=== PATIENT | male | born 1940 | race Caucasian/White ===

== ENCOUNTER 2017-03-17 13:59 | Emergency (ER) | payer MEDICARE, MEDICAID ==
[~2017-03-17] VITALS: Ht 154.9 cm; Wt 73.0 kg
[~2017-03-17 13:59] MED LIST: AMLO5TAB4 PO; ATEN50TA PO; FOLI-43 PO; HYDR25TA PO; LEVO25TA7 PO; LOSA50TA20 PO; LOSA50TA3 PO; TAMS0.4C31 PO; VALS320T2 PO
[2017-03-17 15:36] LABS: BASOPHILS % 1.2 % (0.0-2.0); EOSINOPHILS % 2.3 % (0.0-5.0); HEMATOCRIT. 31.9 % (42.0-52.0); HEMOGLOBIN. 10.5 g/dL (14.0-18.0); LYMPHOCYTES % 10.6 % (20.0-50.0); MEAN CORPUSCULAR HEMOGLOBIN 25.5 pg (28.0-32.0); MEAN CORPUSCULAR VOLUME 77.5 fL (80.0-94.0); MEAN PLATELET VOLUME 8.2 fl (7.4-10.4); MONOCYTES % 5.3 % (2.0-8.0); NEUTROPHILS % 80.6 % (40.0-76.0); PLATELET 249 x1000/uL (130-400); RED BLOOD CELL COUNT 4.12 mill/uL (4.7-6.1); RED CELL DISTRIBUTION WIDTH 17.6 % (11.6-14.6)
[2017-03-17 15:37] LABS: INR 1.1; PARTIAL THROMBOPLASTIN TIME 30.3 sec (24.0-34.0); PROTHROMBIN TIME 11.5 sec
[2017-03-17 15:38] LABS: CARBON DIOXIDE 25 mEq/L (21-32); CHLORIDE 104 mEq/L (98-107)
[2017-03-17 15:43] LABS: CREATINE KINASE 28 IU/L (39-308)
[2017-03-17 15:46] LABS: CREATINE KINASE MB FRACTION 0.6 ng/mL (0.5-3.6); TROPONIN I < 0.02 ng/mL (0.00-0.04)
[2017-03-17] MEDS ORDERED: PIPERACILLIN/TAZ 3.375G PREMIX 50 ML IV ONE (17:00)
[2017-03-17] MEDS ORDERED: FUROSEMIDE 20MG/2ML VIAL IVP ONE (17:00)
[2017-03-17] MEDS ORDERED: VANCOMYCIN 1 G PREMIX 200 ML IV SCH (17:00)
[2017-03-17 19:30] VITALS: BP 161/70
== END 2017-03-17 20:21 | disposition left against medical advice (07) ==
LOC: ER 15:33 → CANRESERV 21:42 → ENRESERV 21:42 → CANBEDREQ 22:13
DX: I50.40 Unspecified combined systolic (congestive) and diastolic (congestive) heart failure (principal); L03.115 Cellulitis of right lower limb; R94.6 Abnormal results of thyroid function studies; I11.0 Hypertensive heart disease with heart failure
CPT/HCPCS: 36415; 71010; 73630; 80053; 82550; 82553; 83690; 83880; 84443; 84484; 84550; 85025; 85610; 85730; 93005; 93970; 96365; 96367; 96375; 99285; J1940; J2543; J3370

== ENCOUNTER 2018-12-13 22:04 | Emergency (ER) | payer MEDICARE, MEDICAID ==
[~2018-12-13] VITALS: Ht 165.1 cm; Wt 73.0 kg
[2018-12-13 23:30] LABS: BASOPHILS % 0.8 % (0.0-2.0); EOSINOPHILS % 1.7 % (0.0-5.0); HEMATOCRIT. 32.9 % (42.0-52.0); HEMOGLOBIN. 10.6 g/dL (14.0-18.0); LYMPHOCYTES % 10.3 % (20.0-50.0); MEAN CORPUSCULAR HEMOGLOBIN 22.3 pg (28.0-32.0); MONOCYTES % 4.8 % (2.0-8.0); NEUTROPHILS % 82.4 % (40.0-76.0); PLATELET 342 x1000/uL (130-400); RED BLOOD CELL COUNT 4.77 mill/uL (4.7-6.1); RED CELL DISTRIBUTION WIDTH 19.5 % (11.6-14.6)
[2018-12-13 23:34] LABS: CHLORIDE 106 mEq/L (98-107)
[2018-12-14 00:06] LABS: PLATELET ESTIMATE NORMAL
[2018-12-14 01:00] VITALS: BP 171/70
== END 2018-12-14 01:00 | disposition home or self-care (01) ==
LOC: ER 22:04
DX: R60.0 Localized edema (principal); E78.00 Pure hypercholesterolemia, unspecified; H40.9 Unspecified glaucoma; I11.0 Hypertensive heart disease with heart failure; Z98.890 Other specified postprocedural states
CPT/HCPCS: 36415; 83880; 93005; 93970; 99284

== ENCOUNTER 2019-06-04 13:29 | Emergency (ER) | payer MEDICARE, MEDICAID ==
[~2019-06-04] VITALS: Ht 172.7 cm; Wt 74.0 kg
[~2019-06-04 13:29] MED LIST changes: -LOSA50TA20 PO; +LOSA50TA41 PO
[2019-06-04 13:56] VITALS: BP 180/67
== END 2019-06-04 17:38 | disposition left against medical advice (07) ==
LOC: ER 13:29
DX: Z53.21 Procedure and treatment not carried out due to patient leaving prior to being seen by health care provider (principal)

== ENCOUNTER 2020-02-26 15:24 | Inpatient (IN) | payer MEDICARE, MEDICAID ==
[~2020-02-26] VITALS: Ht 160 cm; Wt 76.7 kg
[2020-02-26] MEDS ORDERED: SODIUM CHLORIDE 0.9% 1,000 ML IV ONE (16:42)
[2020-02-26] MEDS ORDERED: METOCLOPRAMIDE HCL 10MG/2ML VIAL IV ONE (16:45)
[2020-02-26 17:11] LABS: BASOPHILS % 0.8 % (0.0-2.0); HEMATOCRIT. 36.6 % (42.0-52.0); HEMOGLOBIN. 11.9 g/dL (14.0-18.0); LYMPHOCYTES % 7.2 % (20.0-50.0); MEAN CORPUSCULAR HEMOGLOBIN 22.7 pg (28.0-32.0); MEAN CORPUSCULAR VOLUME 69.9 fL (80.0-94.0); MEAN PLATELET VOLUME 9.1 fl (7.4-10.4); MONOCYTES % 2.7 % (2.0-8.0); NEUTROPHILS % 87.3 % (40.0-76.0); PLATELET 261 x1000/uL (130-400); RED BLOOD CELL COUNT 5.23 mill/uL (4.7-6.1)
[2020-02-26 17:17] LABS: CHLORIDE 86 mEq/L (98-107)
[2020-02-26 17:26] LABS: CREATINE KINASE 86 IU/L (39-308)
[2020-02-26] MEDS ORDERED: LORAZEPAM 2MG/ML CPJ IV ONE (17:30)
[2020-02-26 17:39] LABS: PLATELET ESTIMATE NORMAL
[2020-02-26] MEDS ORDERED: LORAZEPAM 2MG/ML CPJ ONE (17:44)
[2020-02-26] MEDS ORDERED: INSULIN REGULAR (DRIP) 100 UNITS in SODIUM CHLORIDE 0.9% 100 ML IV PRN (17:52)
[2020-02-26 18:07] LABS: CLARITY URINE CLEAR (CLEAR); COLOR URINE YELLOW (YELLOW); KETONES URINE NEGATIVE (NEGATIVE); LEUKOCYTE ESTERASE URINE TRACE (NEGATIVE); NITRITE URINE NEGATIVE (NEGATIVE); OCCULT BLOOD URINE NEGATIVE (NEGATIVE); PH URINE 5.5 (4.5-8.0); PROTEIN URINE 2+ (NEGATIVE); SPECIFIC GRAVITY URINE 1.023 (1.005-1.030); UROBILINOGEN URINE 0.2 E.U./dL (0.2-1.0)
[2020-02-26 18:32] LABS: PHOSPHORUS 4.6 mg/dL (2.5-4.9)
[2020-02-26] MEDS ORDERED: POTASSIUM CHLORIDE 20MEQ TABLET SR PO ONE (20:30)
[2020-02-26] MEDS ORDERED: POTASSIUM CHLORIDE INJ 40 MEQ in DEXT 5% WATER 250 ML IV ONE (20:30)
[2020-02-26] MEDS ORDERED: LABETALOL 5MG/ML SYR 20 MG/4 ML SYRINGE IV ONE (21:00)
[2020-02-26 22:09] LABS: PHOSPHORUS 4.1 mg/dL (2.5-4.9)
[2020-02-27 00:31] LABS: PHOSPHORUS 3.9 mg/dL (2.5-4.9)
[2020-02-27 02:45] LABS: PHOSPHORUS 3.5 mg/dL (2.5-4.9)
[2020-02-27] MEDS ORDERED: DEXT 5%/0.9% NACL 1,000 ML IV SCH (05:00)
[2020-02-27] MEDS ORDERED: CLONIDINE 0.2MG TABLET PO NR (09:13)
[2020-02-27] MEDS: AMLODIPINE 5MG TABLET PO SCH (11:48)
[2020-02-27] MEDS ORDERED: POTASSIUM CHLORIDE INJ 40 MEQ in DEXT 5% WATER 250 ML IV NR ×3 (12:00→23:15)
[2020-02-27 13:42] LABS: *BARBITURATES SCREEN URINE NEGATIVE (NEGATIVE)
[2020-02-27 13:44] LABS: *AMPHETAMINES SCREEN URINE NEGATIVE (NEGATIVE); *BENZODIAZEPINES SCREEN URINE NEGATIVE (NEGATIVE)
[2020-02-27 13:45] LABS: *COCAINE SCREEN URINE NEGATIVE (NEGATIVE)
[2020-02-27 13:49] LABS: PHENCYCLIDINE URINE SCREEN NEGATIVE (NEGATIVE)
[2020-02-27 13:50] LABS: METHADONE URINE SCREEN NEGATIVE (NEGATIVE)
[2020-02-27 13:51] LABS: CANNABINOID URINE SCREEN NEGATIVE (NEGATIVE)
[2020-02-27 13:56] LABS: OPIATES URINE SCREEN NEGATIVE (NEGATIVE)
[2020-02-27 15:02] LABS: INR 1.2; PROTHROMBIN TIME 12.2 sec (9.6-11.0)
[2020-02-27 15:13] LABS: PHOSPHORUS 2.4 mg/dL (2.5-4.9)
[2020-02-27] MEDS ORDERED: HYDRALAZINE 20MG/ML VIAL IV NR (15:15)
[2020-02-27 15:27] LABS: HEPATITIS B SURFACE ANTIGEN NEGATIVE
[2020-02-27] MEDS ORDERED: ONDANSETRON HCL 4MG/2ML INJ IV PRN (15:30)
[2020-02-27] MEDS ORDERED: LACTULOSE 20G/30ML UDC PO PRN (15:30)
[2020-02-27] MEDS ORDERED: SODIUM CHLORIDE 0.45% 1,000 ML IV SCH (15:30)
[2020-02-27] MEDS ORDERED: ACETAMINOPHEN 650MG SUPP PR PRN (15:30)
[2020-02-27] MEDS ORDERED: DIPHENHYDRAMINE 50MG/ML VIAL IV PRN (15:30)
[2020-02-27] MEDS ORDERED: ACETAMINOPHEN 325MG TABLET PO PRN (15:30)
[2020-02-27] MEDS ORDERED: DEXTROSE 50% WATER 50ML SYRINGE IV PRN (15:30)
[2020-02-27 15:56] LABS: HEPATITIS A AB IGM NEGATIVE (NEGATIVE)
[2020-02-27] MEDS ORDERED: INSULIN GLARGINE UD 100 UNITS/ML SYR SUBCUT NR (16:00)
[2020-02-27] MEDS ORDERED: POTASSIUM CHLORIDE 20MEQ TABLET SR PO NR (16:00)
[2020-02-27] MEDS: PIPERACILLIN/TAZOBACTAM 2.25 G in DEXTROSE 5% WATER 50 ML IV SCH ×2 (16:45→18:00)
[2020-02-27] MEDS: BLOOD SUGAR DIAGNOSTIC STRIP TEST SCH (17:22)
[2020-02-27] MEDS: INSULIN LISPRO 100 UNITS/ML SUBCUT SCH ×2 (17:30→22:37)
[2020-02-27] MEDS ORDERED: ATENOLOL 50 MG TABLET PO NR (17:45)
[2020-02-27 18:12] LABS: BG BASE EXCESS -4.7 mmol/L (-2.0-2.0); BG CARBOXYHEMOGLOBIN 1.2 % (0.5-1.5); BG DEOXYHEMOGLOBIN 4.5 % (0.0-5.0); BG FRACTION INSPIRED OXYGEN 21; BG HCO3 ACT 19.5 mmol/L (22.0-26.0); BG METHEMOGLOBIN 0.2 % (0.0-1.5); BG OXYGEN SATURATION 95.4 % (92.0-98.5); BG OXYHEMOGLOBIN 94.1 % (94.0-97.0); BG PCO2 33.4 mmHg (35.0-45.0); BG PH 7.385 (7.350-7.450); BG PO2 77.1 mmHg (75.0-100.0); BG SAMPLE SITE RIGHT RADIAL; BG TOTAL HEMOGLOBIN 12.4 g/dL (12.0-18.0); BG VENT MODE ROOM AIR
[2020-02-27] MEDS: ENOXAPARIN 30MG/0.3ML SYR SUBCUT SCH (18:13)
[2020-02-27] MEDS: HYDRALAZINE 20MG/ML VIAL IV PRN (20:14)
[2020-02-27] MEDS ORDERED: INSULIN GLARGINE UD 100 UNITS/ML SYR SUBCUT SCH (22:00)
[2020-02-27 23:00] LABS: HEMATOCRIT. 36.3 % (42.0-52.0); MEAN CORPUSCULAR HEMOGLOBIN 22.2 pg (28.0-32.0); MEAN CORPUSCULAR VOLUME 67.3 fL (80.0-94.0); MEAN PLATELET VOLUME 8.5 fl (7.4-10.4); PLATELET 317 x1000/uL (130-400); RED BLOOD CELL COUNT 5.39 mill/uL (4.7-6.1); RED CELL DISTRIBUTION WIDTH 19.6 % (11.6-14.6)
[2020-02-27 23:17] LABS: PLATELET ESTIMATE NORMAL
[2020-02-28] VITALS (10 sets, daily range): BP systolic 124–194; BP diastolic 62–84
[2020-02-28] MEDS: LORAZEPAM 2MG/ML CPJ IV PRN (02:05)
[2020-02-28] MEDS: PIPERACILLIN/TAZOBACTAM 2.25 G in DEXTROSE 5% WATER 50 ML IV SCH (03:54)
[2020-02-28] MEDS: BLOOD SUGAR DIAGNOSTIC STRIP TEST SCH ×4 (07:30→20:13)
[2020-02-28] MEDS: LEVOTHYROXINE SODIUM 25MCG TABLET PO SCH (09:00)
[2020-02-28] MEDS: FAMOTIDINE 20MG/2ML VIAL IV SCH (09:00)
[2020-02-28] MEDS: TAMSULOSIN HCL 0.4MG SR CAPSULE PO SCH (09:00)
[2020-02-28] MEDS ORDERED: ATENOLOL 50 MG TABLET PO SCH (09:00)
[2020-02-28 09:09] LABS: BASOPHILS % 1.1 % (0.0-2.0); EOSINOPHILS % 2.2 % (0.0-5.0); HEMATOCRIT. 35.9 % (42.0-52.0); HEMOGLOBIN. 11.9 g/dL (14.0-18.0); MEAN CORPUSCULAR HEMOGLOBIN 22.3 pg (28.0-32.0); MEAN CORPUSCULAR VOLUME 67.8 fL (80.0-94.0); MEAN PLATELET VOLUME 8.6 fl (7.4-10.4); MONOCYTES % 4.6 % (2.0-8.0); NEUTROPHILS % 84.1 % (40.0-76.0); PLATELET 314 x1000/uL (130-400); RED CELL DISTRIBUTION WIDTH 19.9 % (11.6-14.6)
[2020-02-28] MEDS: AMLODIPINE 5MG TABLET PO SCH ×2 (10:08→20:12)
[2020-02-28] MEDS: INSULIN LISPRO 100 UNITS/ML SUBCUT SCH ×4 (10:12→20:55)
[2020-02-28] MEDS ORDERED: HYDRALAZINE HCL 50MG TABLET PO NR (11:15)
[2020-02-28] MEDS ORDERED: INSULIN GLARGINE UD 100 UNITS/ML SYR SUBCUT ONE (12:30)
[2020-02-28] MEDS ORDERED: LEVOFLOXACIN 500MG PREMIX 100 ML IV NR (13:00)
[2020-02-28 15:56] LABS: HEMATOCRIT 34.3 % (42.0-52.0); HEMOGLOBIN 11.3 g/dL (14.0-18.0)
[2020-02-28] MEDS: ENOXAPARIN 30MG/0.3ML SYR SUBCUT SCH (16:34)
[2020-02-28] MEDS: HYDRALAZINE HCL 50MG TABLET PO SCH ×2 (16:35→21:55)
[2020-02-28] MEDS ORDERED: INSULIN GLARGINE UD 100 UNITS/ML SYR SUBCUT NR (18:00)
[2020-02-28] MEDS: MORPHINE SULFATE 2 MG/ML CPJ (NOT FOR IM USE) IV PRN (21:05)
[2020-02-28] MEDS: INSULIN GLARGINE UD 100 UNITS/ML SYR SUBCUT SCH (21:56)
[2020-02-28] MEDS ORDERED: INSULIN GLARGINE UD 100 UNITS/ML SYR SUBCUT SCH (22:00)
[2020-02-28] MEDS: CLONIDINE 0.1MG TABLET PO SCH (22:49)
[2020-02-29] VITALS (11 sets, daily range): BP systolic 115–158; BP diastolic 58–80
[2020-02-29] MEDS: MORPHINE SULFATE 2 MG/ML CPJ (NOT FOR IM USE) IV PRN ×2 (02:31→22:07)
[2020-02-29] MEDS: HYDRALAZINE HCL 50MG TABLET PO SCH ×3 (05:18→22:06)
[2020-02-29] MEDS: CLONIDINE 0.1MG TABLET PO SCH ×3 (05:21→22:06)
[2020-02-29 05:37] LABS: HEMATOCRIT 31.1 % (42.0-52.0); HEMOGLOBIN 10.2 g/dL (14.0-18.0); MEAN CORPUSCULAR HEMOGLOBIN 21.9 pg (28.0-32.0); MEAN CORPUSCULAR VOLUME 66.7 fL (80.0-94.0); PLATELET 431 x1000/uL (130-400); RED BLOOD CELL COUNT 4.66 mill/uL (4.7-6.1); RED CELL DISTRIBUTION WIDTH 20.2 % (11.6-14.6)
[2020-02-29] MEDS: BLOOD SUGAR DIAGNOSTIC STRIP TEST SCH ×4 (07:44→21:00)
[2020-02-29] MEDS: TAMSULOSIN HCL 0.4MG SR CAPSULE PO SCH (08:02)
[2020-02-29] MEDS: FAMOTIDINE 20MG/2ML VIAL IV SCH (08:03)
[2020-02-29] MEDS: AMLODIPINE 5MG TABLET PO SCH ×2 (08:03→22:06)
[2020-02-29] MEDS: LEVOTHYROXINE SODIUM 25MCG TABLET PO SCH (08:03)
[2020-02-29] MEDS: INSULIN LISPRO 100 UNITS/ML SUBCUT SCH ×4 (08:43→22:35)
[2020-02-29] MEDS ORDERED: DOCUSATE SODIUM 100MG CAPSULE PO SCH (09:00)
[2020-02-29] MEDS: LEVOFLOXACIN 250MG PREMIX 50 ML IV SCH (10:29)
[2020-02-29] MEDS: INSULIN GLARGINE UD 100 UNITS/ML SYR SUBCUT SCH ×2 (10:29→22:37)
[2020-02-29 11:24] LABS: BASOPHILS % 0.9 % (0.0-2.0); EOSINOPHILS % 2.4 % (0.0-5.0); HEMATOCRIT. 29.4 % (42.0-52.0); HEMOGLOBIN. 9.7 g/dL (14.0-18.0); LYMPHOCYTES % 8.7 % (20.0-50.0); MEAN CORPUSCULAR HEMOGLOBIN 22.2 pg (28.0-32.0); MEAN CORPUSCULAR VOLUME 67.5 fL (80.0-94.0); MEAN PLATELET VOLUME 8.2 fl (7.4-10.4); MONOCYTES % 4.6 % (2.0-8.0); NEUTROPHILS % 83.4 % (40.0-76.0); PLATELET 357 x1000/uL (130-400); RED BLOOD CELL COUNT 4.36 mill/uL (4.7-6.1); RED CELL DISTRIBUTION WIDTH 19.5 % (11.6-14.6)
[2020-02-29] MEDS ORDERED: INSU100I28 SQ (12:29)
[2020-02-29] MEDS ORDERED: FAMO-135 PO (12:29)
[2020-02-29] MEDS ORDERED: BLOO1KIT74 TP (12:29)
[2020-02-29] MEDS ORDERED: LEVO500T2 PO (12:29)
[2020-02-29] MEDS ORDERED: INSLIS SUBCUT (12:29)
[2020-02-29] MEDS ORDERED: LANC1COM2 MC (12:29)
[2020-02-29] MEDS ORDERED: HYDR-4135 PO (12:29)
[2020-02-29] MEDS ORDERED: BLOO-1465 MT (12:29)
[2020-02-29] MEDS ORDERED: LEVO25TA2 MT (12:29)
[2020-02-29] MEDS ORDERED: ATEN50TA MT (12:29)
[2020-02-29] MEDS ORDERED: TAMS-11 MT (12:29)
[2020-02-29] MEDS ORDERED: CLON0.1T PO (12:29)
[2020-02-29] MEDS: METRONIDAZOLE 500MG TABLET PO SCH ×2 (13:07→22:06)
[2020-02-29] MEDS: HYDRALAZINE 20MG/ML VIAL IV PRN (13:59)
[2020-02-29] MEDS ORDERED: METRONIDAZOLE 500MG TABLET PO SCH (14:00)
[2020-02-29 18:09] LABS: CLARITY URINE TURBID (CLEAR); COLOR URINE RED (YELLOW); KETONES URINE 2+ (NEGATIVE); LEUKOCYTE ESTERASE URINE 3+ (NEGATIVE); NITRITE URINE POSITIVE (NEGATIVE); OCCULT BLOOD URINE 3+ (NEGATIVE); PROTEIN URINE 3+ (NEGATIVE); SPECIFIC GRAVITY URINE 1.018 (1.005-1.030)
[2020-03-01] VITALS (19 sets, daily range): BP systolic 139–170; BP diastolic 59–86
[2020-03-01] MEDS: HYDRALAZINE HCL 50MG TABLET PO SCH ×3 (06:57→21:31)
[2020-03-01] MEDS: CLONIDINE 0.1MG TABLET PO SCH ×3 (06:58→21:31)
[2020-03-01 07:12] LABS: HEMATOCRIT. 26.1 % (42.0-52.0); HEMOGLOBIN. 8.7 g/dL (14.0-18.0); MEAN CORPUSCULAR HEMOGLOBIN 22.3 pg (28.0-32.0); MEAN CORPUSCULAR VOLUME 66.7 fL (80.0-94.0); MEAN PLATELET VOLUME 8.4 fl (7.4-10.4); PLATELET 347 x1000/uL (130-400); RED BLOOD CELL COUNT 3.91 mill/uL (4.7-6.1); RED CELL DISTRIBUTION WIDTH 20.2 % (11.6-14.6)
[2020-03-01] MEDS: BLOOD SUGAR DIAGNOSTIC STRIP TEST SCH ×4 (07:55→21:34)
[2020-03-01] MEDS: FAMOTIDINE 20MG/2ML VIAL IV SCH (08:14)
[2020-03-01] MEDS: TAMSULOSIN HCL 0.4MG SR CAPSULE PO SCH (08:14)
[2020-03-01] MEDS: INSULIN LISPRO 100 UNITS/ML SUBCUT SCH ×4 (08:14→21:53)
[2020-03-01] MEDS: LEVOTHYROXINE SODIUM 25MCG TABLET PO SCH (08:15)
[2020-03-01] MEDS: METRONIDAZOLE 500MG TABLET PO SCH ×2 (08:15→21:32)
[2020-03-01] MEDS: AMLODIPINE 5MG TABLET PO SCH ×2 (08:15→21:32)
[2020-03-01] MEDS: LEVOFLOXACIN 250MG PREMIX 50 ML IV SCH (10:52)
[2020-03-01] MEDS: INSULIN GLARGINE UD 100 UNITS/ML SYR SUBCUT SCH ×2 (10:52→21:34)
[2020-03-01] MEDS: SODIUM CHLORIDE 0.45% 1,000 ML IV SCH (12:10)
[2020-03-01] MEDS: NYSTATIN POWDER 15GM TOP SCH (17:36)
[2020-03-01 18:40] LABS: PLATELET ESTIMATE NORMAL
[2020-03-01] MEDS: LORAZEPAM 2MG/ML CPJ IV PRN (21:32)
[2020-03-01 23:47] LABS: HEMATOCRIT 26.9 % (42.0-52.0); MEAN CORPUSCULAR HEMOGLOBIN 23.6 pg (28.0-32.0); MEAN CORPUSCULAR VOLUME 70.5 fL (80.0-94.0); PLATELET 333 x1000/uL (130-400); RED BLOOD CELL COUNT 3.81 mill/uL (4.7-6.1); RED CELL DISTRIBUTION WIDTH 21.8 % (11.6-14.6)
[2020-03-02] VITALS (10 sets, daily range): BP systolic 132–162; BP diastolic 58–71
[2020-03-02] MEDS: HYDRALAZINE HCL 50MG TABLET PO SCH ×2 (05:10→13:44)
[2020-03-02] MEDS: CLONIDINE 0.1MG TABLET PO SCH ×2 (05:11→13:44)
[2020-03-02] MEDS: BLOOD SUGAR DIAGNOSTIC STRIP TEST SCH ×2 (06:04→12:22)
[2020-03-02] MEDS: SODIUM CHLORIDE 0.45% 1,000 ML IV SCH ×2 (06:04→13:16)
[2020-03-02 06:14] LABS: BASOPHILS % 0.8 % (0.0-2.0); EOSINOPHILS % 3.1 % (0.0-5.0); HEMATOCRIT. 26.7 % (42.0-52.0); HEMOGLOBIN. 8.8 g/dL (14.0-18.0); LYMPHOCYTES % 7.1 % (20.0-50.0); MEAN CORPUSCULAR VOLUME 69.7 fL (80.0-94.0); MEAN PLATELET VOLUME 8.3 fl (7.4-10.4); MONOCYTES % 3.9 % (2.0-8.0); NEUTROPHILS % 85.1 % (40.0-76.0); PLATELET 306 x1000/uL (130-400); RED BLOOD CELL COUNT 3.84 mill/uL (4.7-6.1); RED CELL DISTRIBUTION WIDTH 22.1 % (11.6-14.6)
[2020-03-02 07:05] LABS: PHOSPHORUS 4.4 mg/dL (2.5-4.9)
[2020-03-02] MEDS: FAMOTIDINE 20MG/2ML VIAL IV SCH (08:37)
[2020-03-02] MEDS: TAMSULOSIN HCL 0.4MG SR CAPSULE PO SCH (08:37)
[2020-03-02] MEDS: AMLODIPINE 5MG TABLET PO SCH (08:38)
[2020-03-02] MEDS: LEVOTHYROXINE SODIUM 25MCG TABLET PO SCH (08:38)
[2020-03-02] MEDS: METRONIDAZOLE 500MG TABLET PO SCH (08:38)
[2020-03-02] MEDS: NYSTATIN POWDER 15GM TOP SCH ×2 (08:40→13:16)
[2020-03-02] MEDS: INSULIN LISPRO 100 UNITS/ML SUBCUT SCH ×2 (08:40→12:23)
[2020-03-02] MEDS: LEVOFLOXACIN 250MG PREMIX 50 ML IV SCH (10:29)
[2020-03-02] MEDS: INSULIN GLARGINE UD 100 UNITS/ML SYR SUBCUT SCH (10:30)
[2020-03-02 13:46] LABS: PLATELET ESTIMATE NORMAL
== END 2020-03-02 17:39 | disposition home health service (06) | DRG 73 ==
LOC: ER 15:24 → MICUSO 20:28 → 5EST 02-28 03:54
PROVIDERS: ADMIT Internal Medicine; ATTEND Internal Medicine
PROC: 30233N1 Transfusion of Nonautologous Red Blood Cells into Peripheral Vein, Percutaneous Approach (ICD-10-PCS; principal; 2020-03-01)
DX: E11.43 Type 2 diabetes mellitus with diabetic autonomic (poly)neuropathy (principal); K85.90 Acute pancreatitis without necrosis or infection, unspecified; I50.33 Acute on chronic diastolic (congestive) heart failure; E87.1 Hypo-osmolality and hyponatremia; I13.0 Hypertensive heart and chronic kidney disease with heart failure and stage 1 through stage 4 chronic kidney disease, or unspecified chronic kidney disease; N18.4 Chronic kidney disease, stage 4 (severe); N17.9 Acute kidney failure, unspecified; T83.83XA Hemorrhage due to genitourinary prosthetic devices, implants and grafts, initial encounter; K31.84 Gastroparesis; I16.0 Hypertensive urgency; E11.00 Type 2 diabetes mellitus with hyperosmolarity without nonketotic hyperglycemic-hyperosmolar coma (NKHHC); E11.10 Type 2 diabetes mellitus with ketoacidosis without coma; E11.22 Type 2 diabetes mellitus with diabetic chronic kidney disease; E87.6 Hypokalemia; K74.60 Unspecified cirrhosis of liver; N40.0 Benign prostatic hyperplasia without lower urinary tract symptoms; K57.90 Diverticulosis of intestine, part unspecified, without perforation or abscess without bleeding; D64.9 Anemia, unspecified; E78.5 Hyperlipidemia, unspecified; E78.00 Pure hypercholesterolemia, unspecified; R16.2 Hepatomegaly with splenomegaly, not elsewhere classified; N28.1 Cyst of kidney, acquired; E11.65 Type 2 diabetes mellitus with hyperglycemia; R31.9 Hematuria, unspecified; R19.7 Diarrhea, unspecified; N32.89 Other specified disorders of bladder; K40.90 Unilateral inguinal hernia, without obstruction or gangrene, not specified as recurrent; R62.7 Adult failure to thrive; Z79.890 Hormone replacement therapy; Z79.899 Other long term (current) drug therapy; Z68.29 Body mass index [BMI] 29.0-29.9, adult; D72.829 Elevated white blood cell count, unspecified
CPT/HCPCS: 36415; 36600; 71045; 74018; 74176; 76700; 80048; 80053; 80305; 81003; 82270; 82375; 82550; 82570; 82805; 82962; 83036; 83735; 83880; 83930; 84100; 84145; 84153; 84300; 84484; 85014; 85018; 85025; 85027; 86705; 86709; 86803; 86850; 86900; 86920; 87015; 87045; 87340; 87427; 87449; 89055; 93005; 93306; 93970; 96365; 97162; 99291; J0360; J1200; J1650; J1815; J1956; J2060; J2270; J2405; J2543; J2765; J3480; J3490; J7030; J7042; J7060; P9016; G0103

== ENCOUNTER 2020-04-18 19:15 | Emergency (ER) | payer MEDICARE, MEDICAID ==
[~2020-04-18] VITALS: Ht 165.1 cm; Wt 79.0 kg
[~2020-04-18 19:15] MED LIST changes: -AMLO5TAB4 PO; +ATEN50TA MT; +BLOO-1465 MT; +BLOO1KIT74 TP; +CLON0.1T PO; +FAMO-135 PO; +HYDR-4135 PO; -HYDR25TA PO; +INSLIS SUBCUT; +INSU100I28 SQ; +LANC1COM2 MC; +LEVO25TA2 MT; +LEVO500T2 PO; -LOSA50TA3 PO; -LOSA50TA41 PO; +TAMS-11 MT; -VALS320T2 PO
[2020-04-18 23:47] LABS: CLARITY URINE CLEAR (CLEAR); COLOR URINE YELLOW (YELLOW); KETONES URINE NEGATIVE (NEGATIVE); LEUKOCYTE ESTERASE URINE 3+ (NEGATIVE); NITRITE URINE NEGATIVE (NEGATIVE); OCCULT BLOOD URINE NEGATIVE (NEGATIVE); PROTEIN URINE 2+ (NEGATIVE); UROBILINOGEN URINE 0.2 E.U./dL (0.2-1.0)
[2020-04-18 23:55] LABS: BASOPHILS % 1.9 % (0.0-2.0); HEMATOCRIT. 31.9 % (42.0-52.0); HEMOGLOBIN. 10.2 g/dL (14.0-18.0); LYMPHOCYTES % 12.3 % (20.0-50.0); MEAN CORPUSCULAR HEMOGLOBIN 21.6 pg (28.0-32.0); MEAN PLATELET VOLUME 8.1 fl (7.4-10.4); MONOCYTES % 3.8 % (2.0-8.0); PLATELET 333 x1000/uL (130-400); RED BLOOD CELL COUNT 4.69 mill/uL (4.7-6.1); RED CELL DISTRIBUTION WIDTH 19.4 % (11.6-14.6)
[2020-04-19] LABS: CHLORIDE 105 mEq/L (98-107)
[2020-04-19 01:03] VITALS: BP 142/65
[2020-04-19 04:52] LABS: PLATELET ESTIMATE NORMAL
== END 2020-04-19 00:45 | disposition home or self-care (01) ==
LOC: ER 19:15
DX: I13.0 Hypertensive heart and chronic kidney disease with heart failure and stage 1 through stage 4 chronic kidney disease, or unspecified chronic kidney disease (principal); T83.098A Other mechanical complication of other urinary catheter, initial encounter; E11.22 Type 2 diabetes mellitus with diabetic chronic kidney disease; N18.9 Chronic kidney disease, unspecified; I50.9 Heart failure, unspecified; E78.00 Pure hypercholesterolemia, unspecified; H40.9 Unspecified glaucoma; Z79.4 Long term (current) use of insulin; Y84.6 Urinary catheterization as the cause of abnormal reaction of the patient, or of later complication, without mention of misadventure at the time of the procedure; Y92.018 Other place in single-family (private) house as the place of occurrence of the external cause
CPT/HCPCS: 36415; 71045; 80053; 81003; 82962; 83880; 84484; 85025; 87077; 87186; 93005; 99285

== ENCOUNTER 2021-01-17 20:11 | Emergency (ER) | payer MEDICARE, MEDICAID ==
[~2021-01-17] VITALS: Ht 167.6 cm; Wt 68.0 kg
[2021-01-17 21:55] LABS: CLARITY URINE TURBID (CLEAR); COLOR URINE YELLOW (YELLOW); KETONES URINE NEGATIVE (NEGATIVE); LEUKOCYTE ESTERASE URINE 3+ (NEGATIVE); NITRITE URINE POSITIVE (NEGATIVE); OCCULT BLOOD URINE TRACE (NEGATIVE); PH URINE 5.5 (4.5-8.0); PROTEIN URINE 3+ (NEGATIVE); SPECIFIC GRAVITY URINE 1.008 (1.005-1.030); UROBILINOGEN URINE 0.2 E.U./dL (0.2-1.0)
[2021-01-17 22:12] LABS: HEMATOCRIT. 30.6 % (42.0-52.0); HEMOGLOBIN. 9.9 g/dL (14.0-18.0); MEAN CORPUSCULAR HEMOGLOBIN 21.3 pg (28.0-32.0); MEAN CORPUSCULAR VOLUME 65.7 fL (80.0-94.0); MEAN PLATELET VOLUME 7.7 fl (7.4-10.4); PLATELET 444 x1000/uL (130-400); RED BLOOD CELL COUNT 4.66 mill/uL (4.7-6.1); RED CELL DISTRIBUTION WIDTH 19.7 % (11.6-14.6)
[2021-01-17 22:19] LABS: CHLORIDE 109 mEq/L (98-107)
[2021-01-17 22:41] LABS: PLATELET ESTIMATE SLIGHTLY INCREASED
[2021-01-17] MEDS ORDERED: CEPH500T MT (23:18)
[2021-01-17] MEDS ORDERED: CEFTRIAXONE SODIUM 1 G/VIAL IM ONE (23:30)
[2021-01-18] VITALS: BP 168/85
== END 2021-01-18 01:17 | disposition still patient (30) ==
LOC: ER 20:11
DX: R33.9 Retention of urine, unspecified (principal); E11.9 Type 2 diabetes mellitus without complications; I10 Essential (primary) hypertension; E03.9 Hypothyroidism, unspecified; Z79.899 Other long term (current) drug therapy
CPT/HCPCS: 36415; 80053; 81003; 85025; 87077; 87086; 87186; 96372; 99284; J0696; A4315

== ENCOUNTER 2021-01-19 20:41 | Emergency (ER) | payer MEDICARE, MEDICAID ==
[~2021-01-19] VITALS: Ht 167.6 cm; Wt 69.0 kg
[~2021-01-19 20:41] MED LIST changes: +CEPH500T MT
[2021-01-19] MEDS ORDERED: KETOROLAC 30MG/ML VIAL IV ONE (21:30)
[2021-01-19 22:00] LABS: HEMATOCRIT. 32.7 % (42.0-52.0); HEMOGLOBIN. 10.6 g/dL (14.0-18.0); LYMPHOCYTES % 8.5 % (20.0-50.0); MEAN CORPUSCULAR VOLUME 64.7 fL (80.0-94.0); MEAN PLATELET VOLUME 7.3 fl (7.4-10.4); MONOCYTES % 5.4 % (2.0-8.0); NEUTROPHILS % 82.1 % (40.0-76.0); PLATELET 429 x1000/uL (130-400); RED BLOOD CELL COUNT 5.06 mill/uL (4.7-6.1); RED CELL DISTRIBUTION WIDTH 19.8 % (11.6-14.6)
[2021-01-19 22:03] LABS: CHLORIDE 109 mEq/L (98-107)
[2021-01-19 22:05] LABS: INR 1.2; PROTHROMBIN TIME 12.4 sec (9.6-11.0)
[2021-01-19 22:12] LABS: CLARITY URINE CLOUDY (CLEAR); COLOR URINE YELLOW (YELLOW); KETONES URINE TRACE (NEGATIVE); LEUKOCYTE ESTERASE URINE 3+ (NEGATIVE); NITRITE URINE POSITIVE (NEGATIVE); OCCULT BLOOD URINE 2+ (NEGATIVE); PROTEIN URINE 2+ (NEGATIVE); SPECIFIC GRAVITY URINE 1.009 (1.005-1.030); UROBILINOGEN URINE 0.2 E.U./dL (0.2-1.0)
[2021-01-19 22:26] LABS: PLATELET ESTIMATE INCREASED
[2021-01-19 23:10] VITALS: BP 107/68
== END 2021-01-19 23:30 | disposition home or self-care (01) ==
LOC: ER 20:48
DX: N40.1 Benign prostatic hyperplasia with lower urinary tract symptoms (principal); R33.8 Other retention of urine; I13.10 Hypertensive heart and chronic kidney disease without heart failure, with stage 1 through stage 4 chronic kidney disease, or unspecified chronic kidney disease; E11.22 Type 2 diabetes mellitus with diabetic chronic kidney disease; N18.9 Chronic kidney disease, unspecified; H40.9 Unspecified glaucoma; Z79.4 Long term (current) use of insulin
CPT/HCPCS: 36415; 80053; 81003; 83690; 85025; 85610; 93005; 96374; 99284; J1885

== ENCOUNTER 2021-01-29 10:53 | Emergency (ER) | payer MEDICARE, MEDICAID ==
[~2021-01-29] VITALS: Ht 167.6 cm; Wt 70.0 kg
[2021-01-29 13:03] VITALS: BP 141/77
== END 2021-01-29 13:49 | disposition home or self-care (01) ==
LOC: ER 10:53
DX: T83.038A Leakage of other urinary catheter, initial encounter (principal); E11.22 Type 2 diabetes mellitus with diabetic chronic kidney disease; I13.10 Hypertensive heart and chronic kidney disease without heart failure, with stage 1 through stage 4 chronic kidney disease, or unspecified chronic kidney disease; N18.9 Chronic kidney disease, unspecified; E03.9 Hypothyroidism, unspecified; H40.9 Unspecified glaucoma; N40.0 Benign prostatic hyperplasia without lower urinary tract symptoms; Z79.4 Long term (current) use of insulin; Y84.6 Urinary catheterization as the cause of abnormal reaction of the patient, or of later complication, without mention of misadventure at the time of the procedure; Y92.018 Other place in single-family (private) house as the place of occurrence of the external cause
CPT/HCPCS: 51702; 99284

== ENCOUNTER 2023-04-12 15:21 | Emergency (ER) | payer MEDICARE, MEDICAID ==
[~2023-04-12] VITALS: Ht 170.2 cm; Wt 70.0 kg
[2023-04-12 16:01] VITALS: BP 159/53; PULSE 61; RESP 20; TEMP 98.7; O2SAT 99
== END 2023-04-12 16:23 | disposition home or self-care (01) ==
LOC: ER 15:21
DX: E11.65 Type 2 diabetes mellitus with hyperglycemia (principal); I10 Essential (primary) hypertension; Z86.39 Personal history of other endocrine, nutritional and metabolic disease; Z79.899 Other long term (current) drug therapy
CPT/HCPCS: 82962; 99281; 99282